=== PATIENT | female | born 1990 | race Caucasian/White ===

== ENCOUNTER → 2018-10-10 | Outpatient (CLI) | payer BC ==
[2018-10-10 09:51] LABS: THYROID STIMULATING HORMONE 1.38 uIU/ML (0.358-3.740)
[2018-10-10 10:57] LABS: PROGESTERONE 18.68 NG/ML
[2018-10-10 10:58] LABS: ESTRADIOL 151.1 PG/ML
== END ==
LOC: M LAB 08:44
PROVIDERS: ATTEND Obstetrics & Gynecology Reproductive Endocrinology
DX: E28.9 Ovarian dysfunction, unspecified (principal)

== ENCOUNTER → 2018-10-14 | Outpatient (CLI) | payer BC ==
[2018-10-14 08:45] LABS: HCG, SERUM QUANTITATIVE < 1.0 MIU/ML
[2018-10-14 09:40] LABS: PROGESTERONE 30.28 NG/ML
== END ==
LOC: M LAB 07:54
PROVIDERS: ATTEND Obstetrics & Gynecology Reproductive Endocrinology
DX: E28.9 Ovarian dysfunction, unspecified (principal)